=== PATIENT | male | born 1935 | race Caucasian/White ===

== ENCOUNTER 2023-05-17 11:27 | Inpatient (IN) | payer MEDICARE ==
[~2023-05-17] VITALS: Ht 182.9 cm; Wt 79.4 kg
[2023-05-17] MEDS ORDERED: WELLBUTRIN PO (11:48)
[2023-05-17] MEDS ORDERED: PROZAC (11:48)
[2023-05-17] MEDS ORDERED: DEXILANT PO (11:48)
[2023-05-17] MEDS ORDERED: FLOMAX (11:48)
[2023-05-17] MEDS ORDERED: RISPERDAL PO (11:48)
[2023-05-17] MEDS ORDERED: COLACE PO (11:48)
[2023-05-17] MEDS ORDERED: LIPITOR PO (11:48)
[2023-05-17] MEDS ORDERED: AMBIEN PO (11:48)
[2023-05-17] MEDS ORDERED: PROZAC PO (11:48)
[2023-05-17] MEDS ORDERED: DEXAMETHASONE SOD PHOSPHATE 4 MG INJ IV ONE (12:00)
[2023-05-17] MEDS ORDERED: DEXAMETHASONE SOD PHOSPHATE 10 MG INJ ONE (12:10)
[2023-05-17 12:12] LABS: ABG BASE EXCESS 3.6 mmol/L (-2.0-2.0); ABG PCO2 41.4 mmHg (35.0-48.0); ABG PH 7.448 (7.340-7.440); ABG SITE RIGHT RADIAL; ABG TOTAL HEMOGLOBIN 14.2 G/dL (14.0-18.0); AaDO2 98.2 mmHg; COHb 0.9 % (0.0-3.9); MetHb 0.1 % (0.0-1.5); O2Hb 97.2 % (94.0-97.0)
[2023-05-17] MEDS ORDERED: AZITHROMYCIN IV 500 MG in IV DEXTROSE 5% 250 ML IV ONE (13:15)
[2023-05-17] MEDS ORDERED: CEFTRIAXONE 1 G in IV DEXTROSE 5% 50 ML IV ONE (13:15)
[2023-05-17 13:30] LABS: BASOPHILS % (AUTO) 0.2 % (0.0-2.0); EOSINOPHILS # (AUTO) 0.1 K/uL (0.0-0.7); EOSINOPHILS % (AUTO) 1.5 % (0.0-7.0); HEMATOCRIT 40.5 % (36.7-47.1); HEMOGLOBIN 13.9 g/dL (12.5-16.3); LYMPHOCYTES # (AUTO) 0.9 K/uL (0.8-4.8); LYMPHOCYTES % (AUTO) 16.6 % (20.5-51.5); MEAN CORPUSCULAR HEMOGLOBIN 32.6 uug (23.8-33.4); MEAN CORPUSCULAR HGB CONC 34 g/dL (32.5-36.3); MEAN CORPUSCULAR VOLUME 95.1 fL (73.0-96.2); MONOCYTES # (AUTO) 0.5 K/uL (0.1-1.30); MONOCYTES % (AUTO) 8.6 % (0.0-11.0); NEUTROPHILS # (AUTO) 4.1 K/uL (1.8-8.9); NEUTROPHILS % (AUTO) 73.1 % (38.5-71.5); PLATELET COUNT (AUTO) 193 K/uL (152-348); RED BLOOD CELL COUNT(AUTO) 4.26 MIL/uL (4.06-5.63); RED CELL DISTRIBUTION WIDTH 15.7 % (12.1-16.2); WHITE BLOOD COUNT (AUTO) 5.6 K/uL (3.6-10.2)
[2023-05-17 13:43] LABS: CALCIUM 8.9 mg/dL (8.5-10.1); CARBON DIOXIDE 30 mmol/L (21-32); CHLORIDE 103 mmol/L (98-107); CREATININE 0.7 mg/dL (0.6-1.3); DIFFERENTIAL COMMENT 1; GLUCOSE 105 mg/dL (74-106); SODIUM SERUM 139 mmol/L (136-145); UREA NITROGEN, BLOOD 20 mg/dL (7-18)
[2023-05-17 13:56] LABS: ALANINE AMINOTRANSFERASE 19 U/L (16-63); ALBUMIN 2.9 g/dL (3.4-5.0); ALKALINE PHOSPHATASE 70 U/L (50-136); ASPARTATE AMINOTRANSFERASE 35 U/L (15-37); BILIRUBIN,TOTAL 0.5 mg/dL (0.2-1.0); CREATINE KINASE, TOTAL 87 U/L (39-308); LACTATE DEHYDROGENASE 386 U/L (85-227); NT-PRO BNP 95 pg/mL (0-125); TOTAL PROTEIN, SERUM 6.5 g/dL (6.4-8.2)
[2023-05-17] MEDS ORDERED: CEFTRIAXONE /D5W 50ML IVPB **ER PYXIS IV ONE (14:09)
[2023-05-17 14:26] LABS: FERRITIN 111 ng/mL (26-388)
[2023-05-17 14:29] LABS: C-REACTIVE PROTEIN 4.69 mg/dL (0.00-0.30)
[2023-05-17 14:33] LABS: POTASSIUM 4.8 mmol/L (3.5-5.1)
[2023-05-17] MEDS ORDERED: TAMS-3 PO (16:04)
[2023-05-17] MEDS ORDERED: ASPI-869 PO (16:04)
[2023-05-17] MEDS ORDERED: DUTA0.5C PO (16:04)
[2023-05-17] MEDS ORDERED: MELA10TA2 PO (16:04)
[2023-05-17] MEDS ORDERED: MAGNESIUM HYDROXIDE 30 ML LIQUID UDC PO PRN (20:00)
[2023-05-17] MEDS ORDERED: ACETAMINOPHEN 325 MG TABLET PO PRN (20:00)
[2023-05-17] MEDS ORDERED: ALBUTEROL SULFATE 2.5 MG/ 0.5 ML NEBU NEB PRN (20:00)
[2023-05-17] MEDS ORDERED: ONDANSETRON 4 MG/2 ML VIAL IV PRN (20:00)
[2023-05-17] MEDS ORDERED: TAMSULOSIN HCL 0.4 MG CAP.SR.24H PO SCH (21:00)
[2023-05-17] MEDS ORDERED: risperiDONE 2 MG TABLET PO SCH (21:00)
[2023-05-17] MEDS ORDERED: TAMSULOSIN HCL 0.4 MG CAP.SR.24H ONE (21:19)
[2023-05-17] MEDS ORDERED: MELATONIN 3 MG TABLET ONE (21:19)
[2023-05-17] MEDS: MELATONIN 3 MG TABLET PO SCH (21:25)
[2023-05-18] MEDS ORDERED: PANTOPRAZOLE SODIUM 40 MG TABLET.DR PO ONE (07:32)
[2023-05-18] MEDS: PANTOPRAZOLE SODIUM 40 MG TABLET.DR PO SCH (07:35)
[2023-05-18 08:11] LABS: BASOPHILS % (AUTO) 0.3 % (0.0-2.0); EOSINOPHILS % (AUTO) 0.1 % (0.0-7.0); HEMATOCRIT 39.2 % (36.7-47.1); HEMOGLOBIN 13.4 g/dL (12.5-16.3); LYMPHOCYTES % (AUTO) 16.5 % (20.5-51.5); MEAN CORPUSCULAR HEMOGLOBIN 32.4 uug (23.8-33.4); MEAN CORPUSCULAR HGB CONC 34 g/dL (32.5-36.3); MEAN CORPUSCULAR VOLUME 94.9 fL (73.0-96.2); MONOCYTES # (AUTO) 0.5 K/uL (0.1-1.30); MONOCYTES % (AUTO) 8.4 % (0.0-11.0); NEUTROPHILS # (AUTO) 4.7 K/uL (1.8-8.9); NEUTROPHILS % (AUTO) 74.7 % (38.5-71.5); PLATELET COUNT (AUTO) 230 K/uL (152-348); RED BLOOD CELL COUNT(AUTO) 4.13 MIL/uL (4.06-5.63); RED CELL DISTRIBUTION WIDTH 15.7 % (12.1-16.2); WHITE BLOOD COUNT (AUTO) 6.3 K/uL (3.6-10.2)
[2023-05-18 08:18] LABS: DIFFERENTIAL COMMENT 1
[2023-05-18 08:34] LABS: THYROID STIMULATING HORMONE 2.729 mIU/mL (0.358-3.740)
[2023-05-18] MEDS ORDERED: ASPIRIN EC 325 MG TABLET.DR PO SCH (09:00)
[2023-05-18] MEDS ORDERED: BISACODYL 10 MG SUPP.RECT RC ONE (09:00)
[2023-05-18 09:02] LABS: BILIRUBIN,TOTAL 0.4 mg/dL (0.2-1.0); CALCIUM 8.9 mg/dL (8.5-10.1); CREATININE 0.9 mg/dL (0.6-1.3); MAGNESIUM 2.5 mg/dL (1.8-2.4); PHOSPHOROUS 2.7 mg/dL (2.5-4.9); POTASSIUM 3.8 mmol/L (3.5-5.1); TOTAL PROTEIN, SERUM 6.4 g/dL (6.4-8.2)
[2023-05-18] MEDS ORDERED: ENOXAPARIN SODIUM 40 MG/0.4 ML DISP.SYRIN SQ ONE (09:37)
[2023-05-18] MEDS ORDERED: DEXAMETHASONE SOD PHOSPHATE 10 MG INJ ONE (09:37)
[2023-05-18] MEDS: FLUOXETINE HCL 10 MG CAPSULE PO SCH (09:40)
[2023-05-18] MEDS: DEXAMETHASONE SOD PHOSPHATE 4 MG INJ IV SCH (09:40)
[2023-05-18] MEDS: buPROPion XL 150 MG TAB.SR.24H PO SCH (09:40)
[2023-05-18] MEDS: DUTASTERIDE 0.5 MG CAPSULE PO SCH (09:40)
[2023-05-18] MEDS: ENOXAPARIN SODIUM 40 MG/0.4 ML DISP.SYRIN SQ SCH (09:42)
[2023-05-18] MEDS: AZITHROMYCIN 250 MG TABLET PO SCH ×2 (13:00→15:00)
[2023-05-18 15:00] VITALS: BP 131/70; TEMP 97.8; O2SAT 95
[2023-05-18] MEDS: CEFTRIAXONE 1 G in IV DEXTROSE 5% 50 ML IV SCH ×2 (15:45→18:25)
[2023-05-18] MEDS ORDERED: ZOLPIDEM 5 MG TABLET PO PRN (18:15)
[2023-05-18] MEDS ORDERED: BENZONATATE 100 MG CAPSULE PO PRN (20:00)
[2023-05-18 20:15] VITALS: BP 134/70; TEMP 98.3; O2SAT 96
[2023-05-18] MEDS: TAMSULOSIN HCL 0.4 MG CAP.SR.24H PO SCH (21:06)
[2023-05-18] MEDS: risperiDONE 2 MG TABLET PO SCH (21:07)
[2023-05-18] MEDS: MELATONIN 3 MG TABLET PO SCH (21:07)
[2023-05-19 00:10] VITALS: BP 106/52; TEMP 97.7; O2SAT 98
[2023-05-19 04:10] VITALS: BP 114/60; TEMP 97.5; O2SAT 100
[2023-05-19] MEDS: BISACODYL 10 MG SUPP.RECT RC PRN (06:29)
[2023-05-19] MEDS: PANTOPRAZOLE SODIUM 40 MG TABLET.DR PO SCH (06:29)
[2023-05-19] MEDS: DEXAMETHASONE SOD PHOSPHATE 4 MG INJ IV SCH (09:50)
[2023-05-19] MEDS: DUTASTERIDE 0.5 MG CAPSULE PO SCH (09:51)
[2023-05-19] MEDS: ASPIRIN EC 325 MG TABLET.DR PO SCH (09:51)
[2023-05-19] MEDS: FLUOXETINE HCL 10 MG CAPSULE PO SCH (09:52)
[2023-05-19] MEDS: ENOXAPARIN SODIUM 40 MG/0.4 ML DISP.SYRIN SQ SCH (09:54)
[2023-05-19] MEDS: buPROPion XL 150 MG TAB.SR.24H PO SCH (09:58)
[2023-05-19] MEDS: AZITHROMYCIN 250 MG TABLET PO SCH (12:16)
[2023-05-19] MEDS: CEFTRIAXONE 1 G in IV DEXTROSE 5% 50 ML IV SCH (13:25)
[2023-05-19] MEDS: TAMSULOSIN HCL 0.4 MG CAP.SR.24H PO SCH (20:28)
[2023-05-19] MEDS: risperiDONE 2 MG TABLET PO SCH (20:28)
[2023-05-19] MEDS: MELATONIN 3 MG TABLET PO SCH (20:29)
[2023-05-19 20:37] VITALS: BP 121/67; TEMP 97.7; O2SAT 95
[2023-05-20] VITALS (7 sets, daily range): BP systolic 116–141; BP diastolic 56–76; TEMP 97.6–97.9; O2SAT 92–98
[2023-05-20] MEDS: BISACODYL 10 MG SUPP.RECT RC PRN (05:32)
[2023-05-20] MEDS: PANTOPRAZOLE SODIUM 40 MG TABLET.DR PO SCH (06:23)
[2023-05-20 07:57] LABS: BASOPHILS % (AUTO) 0.1 % (0.0-2.0); EOSINOPHILS % (AUTO) 0.7 % (0.0-7.0); HEMATOCRIT 38.5 % (36.7-47.1); HEMOGLOBIN 13.2 g/dL (12.5-16.3); LYMPHOCYTES # (AUTO) 0.9 K/uL (0.8-4.8); LYMPHOCYTES % (AUTO) 15.7 % (20.5-51.5); MEAN CORPUSCULAR HEMOGLOBIN 32.7 uug (23.8-33.4); MEAN CORPUSCULAR HGB CONC 34 g/dL (32.5-36.3); MEAN CORPUSCULAR VOLUME 95.6 fL (73.0-96.2); MONOCYTES # (AUTO) 0.6 K/uL (0.1-1.30); MONOCYTES % (AUTO) 11.7 % (0.0-11.0); NEUTROPHILS # (AUTO) 3.9 K/uL (1.8-8.9); NEUTROPHILS % (AUTO) 71.8 % (38.5-71.5); PLATELET COUNT (AUTO) 248 K/uL (152-348); RED BLOOD CELL COUNT(AUTO) 4.02 MIL/uL (4.06-5.63); RED CELL DISTRIBUTION WIDTH 15.9 % (12.1-16.2); WHITE BLOOD COUNT (AUTO) 5.5 K/uL (3.6-10.2)
[2023-05-20 08:02] LABS: DIFFERENTIAL COMMENT 1
[2023-05-20 08:08] LABS: ALANINE AMINOTRANSFERASE 30 U/L (16-63); ALBUMIN 2.9 g/dL (3.4-5.0); ALKALINE PHOSPHATASE 59 U/L (50-136); ASPARTATE AMINOTRANSFERASE 16 U/L (15-37); BILIRUBIN,TOTAL 0.5 mg/dL (0.2-1.0); CALCIUM 8.8 mg/dL (8.5-10.1); CARBON DIOXIDE 33 mmol/L (21-32); CHLORIDE 101 mmol/L (98-107); GLUCOSE 96 mg/dL (74-106); MAGNESIUM 2.4 mg/dL (1.8-2.4); PHOSPHOROUS 3.5 mg/dL (2.5-4.9); POTASSIUM 3.7 mmol/L (3.5-5.1); SODIUM SERUM 139 mmol/L (136-145); UREA NITROGEN, BLOOD 17 mg/dL (7-18)
[2023-05-20 08:10] LABS: C-REACTIVE PROTEIN 0.69 mg/dL (0.00-0.30)
[2023-05-20] MEDS: DUTASTERIDE 0.5 MG CAPSULE PO SCH (08:26)
[2023-05-20] MEDS: DEXAMETHASONE SOD PHOSPHATE 4 MG INJ IV SCH (08:26)
[2023-05-20] MEDS: ASPIRIN EC 325 MG TABLET.DR PO SCH (08:26)
[2023-05-20] MEDS: FLUOXETINE HCL 10 MG CAPSULE PO SCH (08:27)
[2023-05-20] MEDS: buPROPion XL 150 MG TAB.SR.24H PO SCH (08:27)
[2023-05-20] MEDS: ENOXAPARIN SODIUM 40 MG/0.4 ML DISP.SYRIN SQ SCH (08:54)
[2023-05-20] MEDS ORDERED: POTASSIUM CHLORIDE 20 MEQ TAB.PRT.SR PO ONE (10:15)
[2023-05-20] MEDS: AZITHROMYCIN 250 MG TABLET PO SCH (12:25)
[2023-05-20] MEDS: CEFTRIAXONE 1 G in IV DEXTROSE 5% 50 ML IV SCH (14:44)
[2023-05-20] MEDS ORDERED: TAMS-3 PO (17:43)
== END 2023-05-20 18:50 | disposition home health service (06) | DRG 177 ==
LOC: ER 11:27 → TRANSITION 21:02 → TELE3 05-18 12:52 → MEDSURG3 05-19 10:32
PROVIDERS: ADMIT Internal Medicine; ATTEND Internal Medicine
DX: U07.1 COVID-19 (principal); G92.8 Other toxic encephalopathy; J12.82 Pneumonia due to coronavirus disease 2019; J96.01 Acute respiratory failure with hypoxia; M48.56XA Collapsed vertebra, not elsewhere classified, lumbar region, initial encounter for fracture; D68.59 Other primary thrombophilia; J47.0 Bronchiectasis with acute lower respiratory infection; Z87.891 Personal history of nicotine dependence; M99.53 Intervertebral disc stenosis of neural canal of lumbar region; Z74.09 Other reduced mobility; E78.5 Hyperlipidemia, unspecified; N40.0 Benign prostatic hyperplasia without lower urinary tract symptoms; K59.00 Constipation, unspecified; Z85.828 Personal history of other malignant neoplasm of skin; J45.909 Unspecified asthma, uncomplicated; Z91.81 History of falling; R26.81 Unsteadiness on feet; I10 Essential (primary) hypertension; R91.8 Other nonspecific abnormal finding of lung field; Z79.899 Other long term (current) drug therapy; Z79.82 Long term (current) use of aspirin; F03.A0 Unspecified dementia, mild, without behavioral disturbance, psychotic disturbance, mood disturbance, and anxiety
CPT/HCPCS: 36415; 36600; 71045; 71250; 82803; 83605; 83615; 83735; 84100; 84443; 84484; 85025; 85730; 86140; 87040; 93005; A4606; A4663; C1758; G0378; J0696; J1100; J1650; Q0144